=== PATIENT | male | born 1955 | race Hispanic/Latino ===

== ENCOUNTER → 2020-10-19 | Outpatient (CLI) | payer MEDICARE | END | disposition home or self-care (01) | LOC: RAH 14:05 | PROVIDERS: ATTEND Otolaryngology Plastic Surgery within the Head & Neck | DX: J32.0 Chronic maxillary sinusitis (principal); H70.92 Unspecified mastoiditis, left ear; J32.9 Chronic sinusitis, unspecified; J33.9 Nasal polyp, unspecified | CPT/HCPCS: 70486 ==

== ENCOUNTER → 2021-08-31 | Outpatient (CLI) | payer MEDICARE ==
[~2021-08-31] VITALS: Ht 170.2 cm; Wt 105.7 kg
[~2021-08-31] MED LIST: 0.9% NACL 500ML IV.SOLN 500 ML IV SCH
[2021-08-31 11:00] LABS: BASOPHILS % (AUTO) 0.9 % (0.0-5.0); EOSINOPHILS % (AUTO) 5.3 % (0.0-8.0); HEMATOCRIT 44.9 % (42-54); LYMPHOCYTES % (AUTO) 18.6 % (21.0-51.0); MEAN CORPUSCULAR HEMOGLOBIN 28.1 pg (27.0-33.0); MEAN CORPUSCULAR HGB CONC 31.4 g/dL (32.0-36.0); MEAN CORPUSCULAR VOLUME 89.6 fL (79-99); MONOCYTES % (AUTO) 9.8 % (3.0-13.0); PLATELET COUNT (AUTO) 237 K/uL (130-400); RED BLOOD CELL COUNT(AUTO) 5.01 MIL/uL (4.50-6.20); RED CELL DISTRIBUTION WIDTH 14.6 % (11.0-15.5); WHITE BLOOD COUNT (AUTO) 9.2 K/uL (4.8-10.8)
[2021-08-31 11:09] LABS: APPEARANCE,URINE Clear (CLEAR); BILIRUBIN,URINE Negative (NEGATIVE); COLOR,URINE Yellow (YELLOW); GLUCOSE, URINE (UA) Negative (NEGATIVE); KETONES,URINE Negative (NEGATIVE); LEUKOCYTE ESTERASE ,URINE Negative (NEGATIVE); NITRATE,URINE Negative (NEGATIVE); OCCULT BLOOD,URINE Negative (NEGATIVE); PH,URINE 5.5 (5.0-8.0); PROTEIN,URINE POS 1+ mg/dL (NEGATIVE)
[2021-08-31 11:25] LABS: BACTERIA,URINE None Seen /HPF (None Seen); RBC,URINE None Seen /HPF (0-1); SPERM,URINE Moderate /HPF (None Seen); WBC,URINE None Seen /HPF (0-1)
[2021-08-31 11:26] LABS: B-TYPE NATRIURETIC PEPTIDE 29 pg/mL (0-100)
[2021-08-31 11:29] LABS: CREATININE 1.3 mg/dL (0.5-1.5)
[2021-08-31 11:38] LABS: INR 0.94 (0.85-1.15); PROTHROMBIN TIME 10.3 SEC (9.6-11.6)
[2021-08-31 11:39] LABS: PARTIAL THROMBOPLASTIN TIME 27.8 SEC (26.3-35.5)
[2021-09-03 09:34] VITALS: BP 179/73
== END | disposition home or self-care (01) ==
LOC: EDSTATUS 09:00 → DAH 10:00
PROVIDERS: ATTEND Student in an Organized Health Care Education/Training Program
DX: Z01.818 Encounter for other preprocedural examination (principal); R06.00 Dyspnea, unspecified; Z79.01 Long term (current) use of anticoagulants; Z79.899 Other long term (current) drug therapy
CPT/HCPCS: 36415; 71045; 80048; 81001; 83880; 85025; 85610; 85730; 93005

== ENCOUNTER → 2021-09-21 | Outpatient (CLI) | payer MEDICARE ==
[~2021-09-21] MED LIST changes: -0.9% NACL 500ML IV.SOLN 500 ML IV SCH; +ATROPINE 1MG SYG IVP ONE; +DILTIAZEM 25MG INJ IVP ONE; +DOBUTAMINE 250MG/D5 250ML 250 ML IV ONE; +HYDRALAZINE 20MG/ML VIAL ONE
== END | disposition home or self-care (01) ==
LOC: RAH 09:13
PROVIDERS: ATTEND Student in an Organized Health Care Education/Training Program
DX: R07.9 Chest pain, unspecified (principal)
CPT/HCPCS: 93351; 96374; J0360; J0461; J1250; J3490

== ENCOUNTER → 2021-10-30 | Outpatient (CLI) | payer MEDICARE ==
[2021-10-30 12:34] LABS: CHOLESTEROL 165 mg/dL (<200); HDL CHOLESTEROL 38 mg/dL (29-71); LDL DIRECT 94 mg/dL (0-99); TRIGLYCERIDES 148 mg/dL (30-200)
== END | disposition home or self-care (01) ==
LOC: LAB 08:19
PROVIDERS: ATTEND Student in an Organized Health Care Education/Training Program
DX: E78.2 Mixed hyperlipidemia (principal)
CPT/HCPCS: 36415; 80061

== ENCOUNTER → 2022-02-22 | Outpatient (CLI) | payer MEDICARE ==
[~2022-02-22] MED LIST changes: -ATROPINE 1MG SYG IVP ONE; -DILTIAZEM 25MG INJ IVP ONE; -DOBUTAMINE 250MG/D5 250ML 250 ML IV ONE; -HYDRALAZINE 20MG/ML VIAL ONE; +IOHEXOL 350 MG/ML 100ML INFUS..BTL IV ONE
== END | disposition home or self-care (01) ==
LOC: RAH 10:16
PROVIDERS: ATTEND Student in an Organized Health Care Education/Training Program
DX: I70.0 Atherosclerosis of aorta (principal); K76.0 Fatty (change of) liver, not elsewhere classified; K44.9 Diaphragmatic hernia without obstruction or gangrene
CPT/HCPCS: 71270; Q9967

== ENCOUNTER → 2022-06-10 | Outpatient (CLI) | payer MEDICARE ==
[2022-06-10 12:44] LABS: BASOPHILS % (AUTO) 1.4 % (0.0-5.0); EOSINOPHILS % (AUTO) 7.1 % (0.0-8.0); HEMATOCRIT 44.7 % (42-54); LYMPHOCYTES % (AUTO) 20.8 % (21.0-51.0); MEAN CORPUSCULAR HEMOGLOBIN 27.2 pg (27.0-33.0); MEAN CORPUSCULAR HGB CONC 30.9 g/dL (32.0-36.0); MEAN CORPUSCULAR VOLUME 88.2 fL (79-99); MONOCYTES % (AUTO) 8.3 % (3.0-13.0); NEUTROPHILS % (AUTO) 61.6 % (40.0-77.0); PLATELET COUNT (AUTO) 217 K/uL (130-400); RED BLOOD CELL COUNT(AUTO) 5.07 MIL/uL (4.50-6.20); RED CELL DISTRIBUTION WIDTH 14.7 % (11.0-15.5); WHITE BLOOD COUNT (AUTO) 7.6 K/uL (4.8-10.8)
[2022-06-10 13:04] LABS: ALBUMIN 3.7 g/dL (3.5-5.0); CREATININE 1.3 mg/dL (0.5-1.5); POTASSIUM 4.5 mmol/L (3.5-5.1); THYROID STIMULATING HORMONE 3.48 uIU/mL (0.36-3.74); TOTAL PROTEIN, SERUM 7.3 g/dL (6.0-8.3)
== END | disposition home or self-care (01) ==
LOC: LAB 08:18
PROVIDERS: ATTEND Student in an Organized Health Care Education/Training Program
DX: I10 Essential (primary) hypertension (principal); E78.2 Mixed hyperlipidemia; E78.1 Pure hyperglyceridemia; I25.10 Atherosclerotic heart disease of native coronary artery without angina pectoris; R73.03 Prediabetes; J44.9 Chronic obstructive pulmonary disease, unspecified; I49.1 Atrial premature depolarization; Z79.899 Other long term (current) drug therapy
CPT/HCPCS: 36415; 80053; 80061; 83036; 84443; 85025

== ENCOUNTER → 2023-05-07 | Outpatient (CLI) | payer MEDICARE ==
[2023-05-07 12:44] LABS: CHOLESTEROL 148 mg/dL (<200); HDL CHOLESTEROL 50 mg/dL (29-71); LDL DIRECT 79 mg/dL (0-99); TRIGLYCERIDES 145 mg/dL (30-200)
== END | disposition home or self-care (01) ==
LOC: LAB 09:28
PROVIDERS: ATTEND Student in an Organized Health Care Education/Training Program
DX: E78.2 Mixed hyperlipidemia (principal); R06.02 Shortness of breath
CPT/HCPCS: 36415; 80061

== ENCOUNTER → 2023-09-26 | Outpatient (CLI) | payer MEDICARE ==
[2023-09-26 12:31] LABS: CHOLESTEROL 145 mg/dL (<200); HDL CHOLESTEROL 54 mg/dL (29-71); LDL DIRECT 78 mg/dL (0-99); TRIGLYCERIDES 150 mg/dL (30-200)
== END | disposition home or self-care (01) ==
LOC: LAB 09:15
PROVIDERS: ATTEND Student in an Organized Health Care Education/Training Program
DX: E78.2 Mixed hyperlipidemia (principal)
CPT/HCPCS: 36415; 80061

== ENCOUNTER → 2024-05-06 | Outpatient (CLI) | payer MEDICARE ==
[2024-05-06 12:51] LABS: ALBUMIN 3.6 g/dL (3.5-5.0); BILIRUBIN,TOTAL 0.4 mg/dL (0.2-1.0); CREATININE 1.2 mg/dL (0.5-1.3); POTASSIUM 4.6 mmol/L (3.5-5.1); TOTAL PROTEIN, SERUM 7.1 g/dL (6.0-8.3)
== END | disposition home or self-care (01) ==
LOC: LAB 09:06
PROVIDERS: ATTEND Student in an Organized Health Care Education/Training Program
DX: I25.10 Atherosclerotic heart disease of native coronary artery without angina pectoris (principal); R07.9 Chest pain, unspecified
CPT/HCPCS: 36415; 80053

== ENCOUNTER → 2024-05-12 | Outpatient (CLI) | payer MEDICARE ==
--- NOTE | 2024-05-12 12:59 | HMCIMG ---
CT CARDIAC ANGIO W/CONT. CCTA REASON: CHEST PAIN COMPARISON: None TECHNIQUE: Images are obtained through the heart in the axial plane before and during bolus IV contrast infusion, 100 cc Omnipaque 350. 2-D and 3-D multiplanar reconstruction images were then performed. The injection had to be repeated once due to motion artifact on the first sequence, total contrast volume was 200 cc. FINDINGS: This dictation is for the noncardiac findings only. Cardiac and coronary artery findings are reported separately. Visualized portions of the lungs are clear. There is normal-appearing pulmonary interstitium. There is no hilar or mediastinal lymphadenopathy. Chest wall structures appear unremarkable. IMPRESSION: 1. Unremarkable noncardiac portions of CT cardiac angiography.
== END | disposition home or self-care (01) ==
LOC: RAH 08:35
PROVIDERS: ATTEND Student in an Organized Health Care Education/Training Program
DX: I25.10 Atherosclerotic heart disease of native coronary artery without angina pectoris (principal); R07.9 Chest pain, unspecified
CPT/HCPCS: 75574; Q9967

== ENCOUNTER 2024-07-22 06:03 | Day surgery (SDC) | payer MEDICARE ==
[2024-07-20 09:48] VITALS: BP 153/71; PULSE 63; RESP 18; TEMP 97.5
--- NOTE | 2024-07-20 09:48 | EKG ---
[facility] Test Date: 2024-07-20 Test Time: 09:41:55 Pat Name: MJ CORBETT Department: [facility] Room: Gender: M Rougher [employer]: [id number] : 1955 Requested By: JUAN ALARCON Order Number: [id number] Reading MD: Javier Dutta Measurements Intervals [place] Rate: 63 P: 0 [place]: 187 QRS: 53 QRSD: 89 T: 41 QT: 394 QTc: 402 Interpretive Statements Sinus rhythm Compared to ECG 08/31/2021 09:40:38 Atrial premature complex(es) no longer present Electronically Signed On 07-21-2024 07:26:21 CDT by Javier Dutta Please click the below link to view image of tracing.
[2024-07-20 09:51] LABS: BASOPHILS # (AUTO) 0.06 K/uL (0.00-0.20); BASOPHILS % (AUTO) 0.8 % (0.0-5.0); EOSINOPHILS # (AUTO) 0.41 K/uL (0.00-0.70); EOSINOPHILS % (AUTO) 5.6 % (0.0-8.0); HEMATOCRIT 46.3 % (42-54); IMMATURE GRANULOCYTE ABSOLUTE 0.03 K/uL (0-1); LYMPHOCYTES # (AUTO) 1.4 K/uL (1.0-4.8); LYMPHOCYTES % (AUTO) 19.8 % (21.0-51.0); MEAN CORPUSCULAR HEMOGLOBIN 28.3 pg (27.0-33.0); MEAN CORPUSCULAR HGB CONC 31.1 g/dL (32.0-36.0); MONOCYTES # (AUTO) 0.7 K/uL (0.1-1.0); MONOCYTES % (AUTO) 9.7 % (3.0-13.0); NEUTROPHILS # (AUTO) 4.6 K/uL (1.8-7.7); NEUTROPHILS % (AUTO) 63.7 % (40.0-77.0); PLATELET COUNT (AUTO) 227 K/uL (130-400); RED BLOOD CELL COUNT(AUTO) 5.09 MIL/uL (4.50-6.20); RED CELL DISTRIBUTION WIDTH 14.7 % (11.0-15.5); WHITE BLOOD COUNT (AUTO) 7.3 K/uL (4.8-10.8)
[2024-07-20 09:58] LABS: APPEARANCE,URINE CLEAR (CLEAR); BILIRUBIN,URINE NEGATIVE (NEGATIVE); COLOR,URINE LIGHT-YELLOW (YELLOW); GLUCOSE, URINE (UA) NEGATIVE (NEGATIVE); KETONES,URINE NEGATIVE (NEGATIVE); LEUKOCYTE ESTERASE ,URINE NEGATIVE Leu/uL (NEGATIVE); NITRATE,URINE NEGATIVE (NEGATIVE); PROTEIN,URINE NEGATIVE (NEGATIVE); UROBILINOGEN,URINE 0.2 mg/dL (0.2-1.0)
[2024-07-20 10:01] LABS: ADD UA MICROSCOPIC YES
[2024-07-20 10:02] LABS: INR 0.97 (0.85-1.15); PROTHROMBIN TIME 10.3 SEC (9.6-11.6)
[2024-07-20 10:02] LABS: BACTERIA,URINE None Seen /HPF (None Seen); RBC,URINE 0-1 /HPF (0-1)
[2024-07-20 10:03] LABS: MUCUS,URINE Rare LPF (None Seen)
[2024-07-20 10:04] LABS: PARTIAL THROMBOPLASTIN TIME 29.5 SEC (26.3-35.5)
[2024-07-20 10:07] LABS: CREATININE 1.4 mg/dL (0.5-1.3); POTASSIUM 4.8 mmol/L (3.5-5.1)
[2024-07-20 10:20] LABS: B-TYPE NATRIURETIC PEPTIDE 69 pg/mL (0-100)
--- NOTE | 2024-07-20 10:27 | HMCIMG ---
Preop HISTORY: No additional history given. COMPARISON: None FINDINGS: A frontal projection of the chest was obtained. No acute pulmonary infiltrates is seen. The heart is borderline enlarged. Aortic calcifications are seen. Degenerative changes are seen. IMPRESSION: 1. No acute pulmonary infiltrate is seen.
--- NOTE | 2024-07-21 10:00 | NUR ---
RE: LABS REPORTED BMP RESULTS TO DR ALARCON, NO NEW ORDERS RECEIVED.
[~2024-07-22] VITALS: Ht 170.2 cm; Wt 101.2 kg
[2024-07-22] VITALS (10 sets, daily range): BP systolic 119–162; BP diastolic 57–86; PULSE 60–66; RESP 14–18; TEMP 97.2–97.9
[~2024-07-22 06:03] MED LIST changes: +ALBU18HF7 IH; +ALPR0.5T8 PO; +BUDE10.7 IH; +FINA5TAB41 PO; +FLUT16H NS; +FURO20TA4 PO; +HYDR-4060 PO; -IOHEXOL 350 MG/ML 100ML INFUS..BTL IV ONE; +MELO-108 PO; +METO50TA18 PO; +NIFE-39 PO; +NIFE-40 PO; +OMEP20CA12 PO; +ROSU10TA72 PO; +VALS160T29 PO
[2024-07-22] MEDS ORDERED: 0.9%NACL 1000ML 1,000 ML IV SCH ×2 (07:00→08:30)
[2024-07-22] MEDS ORDERED: IOHEXOL 350 MG/ML 100ML INFUS..BTL IV ONE (07:19)
[2024-07-22] MEDS ORDERED: LIDOCAINE HCL 400MG/20ML VIAL ONE (07:19)
[2024-07-22] MEDS ORDERED: HEParin 10,000 UNIT/10ML (1,000 UNIT/ML) VIAL ONE (07:19)
[2024-07-22] MEDS ORDERED: HEParin-NS 1,000 UNIT/500 ML 1,000 ML IV ONE (07:19)
[2024-07-22] MEDS ORDERED: VERAPAMIL HCL 2.5 MG/ML VIAL ONE (07:19)
[2024-07-22] MEDS ORDERED: NITROGLYCERIN 50MG VIAL ONE (07:20)
[2024-07-22] MEDS ORDERED: FENTanyl CITRate PF 50 MCG/1 ML 2ML VIAL ONE (07:34)
[2024-07-22] MEDS ORDERED: MIDAZOLAM HCL 1 MG/ML 2ML VIAL ONE ×2 (07:35→07:58)
[2024-07-22] MEDS ORDERED: GLUCAGON 1MG KIT 1 MG ML IM PRN (08:30)
[2024-07-22] MEDS ORDERED: DEXTROSE 50%-WATER 50 ML DISP.SYRIN IV PRN (08:30)
--- NOTE | 2024-07-22 08:32 | PRN ---
PROCEDURE REPORT DATE OF PROCEDURE: Jul 22, 2024 MACHINE BUILDER: [Juan raya MD ] PROCEDURE PERFORMED: Conscious sedation Ultrasound guided right radial artery access Selective left coronary artery angiogram Selective right coronary artery angiogram Left heart catheterization TR band 13 fatou over right radial artery INDICATION: Abnormal coronary CTA DESCRIPTION OF PROCEDURE: After informed consent was obtained, the patient was prepped and draped in the usual sterile fashion. A 6 Fijian arterial sheath was inserted in the right radial artery using ultrasound guidance with first pass wall puncture. The arterial sheath was aspirated and flushed. A 6 Fijian JL 3.5 was then advanced to the ascending aorta over an exchange length J-tip guidewire, was aspirated and flushed, and was used for selective coronary angiograms in multiple obliquities. A JR-4 was advanced in a similar fashion to the ascending aorta over the J-tipped guidewire and was used for selective right coronary angiograms in multiple oblique views with findings as outlined below. The JR-4 catheter advanced into the LV and pressures were obtained with a pull-back across the aortic valve. A TR band was placed over right radial artery. FLUOROSCOPY TIME: 5.6 min LEFT HEART HEMODYNAMICS: LVEDP 25 mm Hg and no gradient Ao CORONARY ANGIOGRAM: LEFT MAIN: Patent and 0% stenosis. Gives rise to LCx and LAD. LEFT ANTERIOR DESCENDING: Large vessel giving rise to two Diagonal branches. There is 40-50% ostial-prox LAD stenosis with DEMETRIA 3 flow. LEFT CIRCUMFLEX: Large, dominant and gives rise to two OM branches. 0% stenosis. OM3 is large with 50-60% proximal stenosis. RIGHT CORONARY ARTERY: Small, nondominant vessel which is patent with luminal irregularities. HEMOSTASIS: TR band 12 fatou over right radial artery INTERVENTIONS: None. COMPLICATIONS: None FINDINGS: Normal coronary anatomy and moderate non-obstructive CAD. ESTIMATED BLOOD LOSS: 5 cc RECOMMENDATIONS/INSTRUCTIONS: Aggressive risk factor modification. Smoking cessation Patient was found to have elevated LVEDP so consider aggressive BP control and outpatient sleep study testing CONTRAST DELIVERED TO PATIENT (mL): 90cc JUAN Bo MD, MD Jul 22, 2024 08:32
--- NOTE | 2024-07-22 10:50 | NUR ---
TR BAND REMOVED DRESSED WITH STERILE NS AND TEGADERM. RIGHT RADIAL SITE ASYMPTOMATIC.
[2024-07-22] MEDS ORDERED: dilTIAZem 25MG INJ IVP ONE (14:30)
== END 2024-07-22 12:30 | disposition home or self-care (01) ==
LOC: DAH 06:03
PROVIDERS: ATTEND Student in an Organized Health Care Education/Training Program
DX: R93.1 Abnormal findings on diagnostic imaging of heart and coronary circulation (principal); I25.118 Atherosclerotic heart disease of native coronary artery with other forms of angina pectoris; I10 Essential (primary) hypertension; E78.5 Hyperlipidemia, unspecified; E78.2 Mixed hyperlipidemia; E78.1 Pure hyperglyceridemia; R07.89 Other chest pain; J44.0 Chronic obstructive pulmonary disease with (acute) lower respiratory infection; R94.31 Abnormal electrocardiogram [ECG] [EKG]; R73.03 Prediabetes; I49.1 Atrial premature depolarization; I73.9 Peripheral vascular disease, unspecified; R42 Dizziness and giddiness; F17.200 Nicotine dependence, unspecified, uncomplicated; Z79.899 Other long term (current) drug therapy
CPT/HCPCS: 80048; 83880; 85025; 85610; 85730; 81001; 36415; 71045; 93005; 93458; C1769; C1894; A4649; J3010; J3490 ×3; J1644 ×2; J2250 ×2; Q9967; A4215; A4222; A4221; A4663; A4216; A4606; Q9965 ×2; A4223 ×3; 96360; 96361; 99156; 99157